=== PATIENT | female | born 1975 | race Hispanic/Latino ===

== ENCOUNTER 2024-09-15 14:58 | Emergency (ER) | payer SELFPAY ==
[~2024-09-15 14:58] MED LIST: Iopamidol 300 61% 100 ML VIAL FS ONE
[2024-09-15 15:33] LABS: #Basophils 0.02 10x3/uL (0.0-0.2); #Eosinophils 0.28 10x3/uL (0.0-0.5); #Monocytes 0.53 10x3/uL (0.0-1.1); #Neutrophils 4.86 10x3/uL (1.5-8.4); %Basophils 0.2 % (0.0-2.0); %Eosinophils 3.4 % (0.0-6.0); %Lymphocytes 31.3 % (18.0-47.0); %Monocytes 6.4 % (0.0-10.0); %Neutrophils 58.3 % (40.0-75.0); Hemoglobin 7.8 g/dL (12.0-15.5); Mean Corpuscular HGB CONC 31.2 g/dL (32.0-36.0); Mean Corpuscular Hemoglobin 23.4 pg (27.0-33.0); Mean Corpuscular Volume 75.1 fL (81.6-98.3); Mean Platelet Volume 9.2 fL (7.4-10.4); Platelet Count 399 10x3/uL (150-450); RBC Distribution Width 15.9 % (11.5-14.5); Red Blood Cell (RBC) Count 3.33 10x6/uL (3.90-5.03); White Blood Cell (WBC) Count 8.3 10x3/uL (3.5-10.5)
[2024-09-15 15:47] LABS: BHCG - Serum Negative (NEGATIVE); Pregs Control Background? CLEAR/WHITE (CLR/WHITE); Pregs Control Bar Appear? YES (CONTROL BAR)
[2024-09-15 15:50] LABS: ALT (SGPT) 13 U/L (8-55); AST (SGOT) 17 U/L (5-34); Albumin 3.6 g/dL (3.5-5.0); Alkaline Phosphatase 77 U/L (40-110); Anion Gap 14 mmol/L (10-20); BUN (Urea Nitrogen) 12 mg/dL (7.0-18.7); Bilirubin, Total 0.2 mg/dL (0.2-1.2); Calc. Creatinine Clearance 0 mL/min (70-130); Calcium 8.6 mg/dL (7.8-10.44); Carbon Dioxide 21 mmol/L (22-29); Chloride 108 mmol/L (98-107); Estimated GFR 110; Globulin 3.3 g/dL (2.4-3.5); Glucose 79 mg/dL (70-105); Lipase 10 U/L (8-78); Potassium 3.9 mmol/L (3.5-5.1); Protein, Total 6.9 g/dL (6.0-8.3); Sodium 139 mmol/L (136-145)
[2024-09-15 15:59] LABS: Bilirubin Neg (Negative); Blood, Urine 250 (Negative); Clarity Bloody (Clear); Glucose, Urine (Dipstick) Normal (Negative); Ketone, Urine Negative (Negative); Leukocyte 500 (Negative); Nitrite Negative (Negative); Protein, Urine (Dipstick) 100 mg/dl (Neg-Trace); Specific Gravity, Urine 1.005 (1.005-1.030); Urobilinogen Normal mg/dL (Less than 2)
[2024-09-15 16:11] LABS: RBC/HPF Greater than 50 HPF (0-3)
[2024-09-15 16:12] LABS: Bacteria/HPF None Seen HPF (None Seen); CAUTI Indications for Culture Pelvic or flank pain; Squamous Epithelial 0-3 HPF (0-3)
[2024-09-15 16:13] LABS: Urine Culture Reflex No No
== END 2024-09-15 16:29 | disposition home or self-care (01) ==
LOC: CSHERS 14:58
DX: D64.9 Anemia, unspecified (principal); N85.8 Other specified noninflammatory disorders of uterus
CPT/HCPCS: 36415; 36416; 74177; 80053; 81001; 83690; 84703; 85025; 93005; Q9967

== ENCOUNTER 2025-05-15 17:07 | Emergency (ER) | payer SELFPAY ==
[2025-05-15 18:09] LABS: #Basophils 0.04 10x3/uL (0.0-0.2); #Eosinophils 0.41 10x3/uL (0.0-0.5); #Monocytes 0.46 10x3/uL (0.0-1.1); #Neutrophils 2.65 10x3/uL (1.5-8.4); %Basophils 0.6 % (0.0-2.0); %Eosinophils 6.3 % (0.0-6.0); %Lymphocytes 45.4 % (18.0-47.0); %Monocytes 7.0 % (0.0-10.0); %Neutrophils 40.5 % (40.0-75.0); Hematocrit 24.1 % (34.9-44.5); Hemoglobin 6.9 g/dL (12.0-15.5); Mean Corpuscular Hemoglobin 18.8 pg (27.0-33.0); Mean Corpuscular Volume 65.7 fL (81.6-98.3); Platelet Count 517 10x3/uL (150-450); Red Blood Cell (RBC) Count 3.67 10x6/uL (3.90-5.03); White Blood Cell (WBC) Count 6.54 10x3/uL (3.5-10.5)
[2025-05-15 18:21] LABS: ALT (SGPT) 10 U/L (Less than 34); AST (SGOT) 24 U/L (11-34); Albumin 3.9 g/dL (3.1-4.5); Alkaline Phosphatase 92 U/L (40-110); Anion Gap 11 mmol/L (10-20); BUN (Urea Nitrogen) 12 mg/dL (7.0-18.7); Bilirubin, Total 0.1 mg/dL (0.3-1.2); Calc. Creatinine Clearance 0 mL/min (70-130); Calcium 9.0 mg/dL (7.8-10.44); Carbon Dioxide 23 mmol/L (22-29); Chloride 109 mmol/L (98-107); Globulin 3.7 g/dL (2.4-3.5); Glucose 103 mg/dL (70-105); Potassium 3.7 mmol/L (3.5-5.1); Sodium 139 mmol/L (136-145)
[2025-05-15 19:19] LABS: Anisocytosis SLIGHT = 6-15 cells (100X) (0-5/hpf)
[2025-05-15 19:20] LABS: Microcytosis MODERATE=15-30 cells (100X) (0-5/hpf)
[2025-05-15 19:21] LABS: Ovalocytes SLIGHT = 2-5 cells (100X) (0-1/hpf); Polychromasia SLIGHT = 2-3 cells (100X) (0-2/hpf)
[2025-05-15 19:22] LABS: Macrocytosis SLIGHT = 6-15 cells (100X) (0-5/hpf); Platelet Adequacy Comment Appears Increased
== END 2025-05-15 22:41 | disposition home or self-care (01) ==
LOC: CSHERS 17:07
DX: D64.9 Anemia, unspecified (principal)
CPT/HCPCS: 36415; 36430; 80053; 85025; 86850; 86900; 86901; 99284; P9016